=== PATIENT | male | born 1965 | race Caucasian/White ===

== ENCOUNTER 2017-04-19 13:29 | Emergency (ER) | payer OTHER ==
[2017-04-19] MEDS ORDERED: SODIUM CHLORIDE 0.9% FLUSH 10 ML SOL IV PRN (13:31)
[2017-04-19] MEDS ORDERED: NITROGLYCERIN 0.4 MG TAB SL ONE (13:48)
[2017-04-19] MEDS: NITROGLYCERIN 0.4 MG TAB SL PRN ×2 (13:51→13:59)
[2017-04-19 13:53] LABS: BASOPHILS % (AUTO) 1 % (0-3); EOSINOPHILS % (AUTO) 6 % (0-9); HEMATOCRIT 50 % (39-53); MEAN CORPUSCULAR HGB CONC 32.3 gm/dl (32.0-36.0); MEAN CORPUSCULAR VOLUME 86 fL (80-100)
[2017-04-19 14:07] LABS: ALBUMIN 3.7 gm/dl (3.4-5.0); CALCIUM 8.9 mg/dl (8.5-10.1)
[2017-04-19] MEDS ORDERED: HEPARIN SODIUM 5000 U/ML SOL IV ONE (14:16)
[2017-04-19] MEDS ORDERED: HEPARIN PREMIX 25,000 U/250 ML SOL IV PRN (14:18)
[2017-04-19] MEDS ORDERED: HEPARIN SODIUM 5000 U/ML SOL ONE (14:22)
[2017-04-19 14:26] LABS: APPEARANCE,URINE Clear; BILIRUBIN,URINE NEGATIVE (NEGATIVE); COLOR,URINE Yellow; GLUCOSE, URINE (UA) NEGATIVE (NEGATIVE); KETONES,URINE NEGATIVE (NEGATIVE); LEUKOCYTE ESTERASE ,URINE NEGATIVE (NEGATIVE); NITRATE,URINE NEGATIVE (NEGATIVE); OCCULT BLOOD,URINE NEGATIVE (NEG-TRACE); PH,URINE 5.5; UROBILINOGEN,URINE 0.2 (0.2-1.0 EU)
[2017-04-19 14:45] LABS: AMPHETAMINES NEGATIVE (NEGATIVE); METHADONE NEGATIVE (NEGATIVE); OPIATES(OP13) NEGATIVE (NEGATIVE); OXYCODONE(OXY) NEGATIVE (NEGATIVE); PROPOXYPHENE(PPX) NEGATIVE (NEGATIVE); RBC,URINE NEGATIVE (0-3AV/HPF); TRICYCLIC ANTIDEPRESSANTS NEGATIVE (NEGATIVE); WBC,URINE 0-1 (0-5AV/HPF)
[2017-04-19 14:53] VITALS: TEMP 99.4
[2017-04-19 15:37] VITALS: BP 148/60; PULSE 57; RESP 17; O2SAT 98
== END 2017-04-19 15:40 | disposition short-term general hospital (02) ==
LOC: ED 13:29
DX: I21.4 Non-ST elevation (NSTEMI) myocardial infarction (principal); I16.1 Hypertensive emergency; D72.829 Elevated white blood cell count, unspecified; Z72.0 Tobacco use; R29.700 NIHSS score 0; J02.9 Acute pharyngitis, unspecified; R06.02 Shortness of breath; R79.89 Other specified abnormal findings of blood chemistry; R42 Dizziness and giddiness
CPT/HCPCS: 71045; 80053; 80305; 81001; 84484; 85025; 85610; 85730; 87040; 93005; 99285; J1644

== ENCOUNTER 2018-04-09 12:20 | Day surgery (SDC) | payer BC | END 2018-04-09 13:29 | disposition home or self-care (01) | LOC: SURG 12:20 ==

== ENCOUNTER 2018-09-10 17:26 | Emergency (ER) | payer OTHER ==
[2018-09-10] MEDS ORDERED: ASPIRIN 81 MG CHEWABLE CTB PO ONE (17:43)
[2018-09-10] MEDS ORDERED: ASPIRIN 81 MG CHEWABLE CTB ONE (17:44)
[2018-09-10 17:45] VITALS: TEMP 98.4
[2018-09-10 18:02] LABS: BASOPHILS % (AUTO) 1 % (0-3); EOSINOPHILS % (AUTO) 3 % (0-9); HEMATOCRIT 47 % (39-53); HEMOGLOBIN 15.4 gm/dl (13.5-17.7); MEAN CORPUSCULAR HEMOGLOBIN 27.9 pg (27.0-32.0); MEAN CORPUSCULAR HGB CONC 32.5 gm/dl (32.0-36.0); MEAN CORPUSCULAR VOLUME 86 fL (80-100); MONOCYTES % (AUTO) 6.8 % (0-12); NEUTROPHILS % (AUTO) 53.8 % (37-80)
[2018-09-10 18:10] LABS: ALBUMIN 3.7 gm/dl (3.4-5.0); ALKALINE PHOSPHATASE 101 IU/L (46-116); ALT 22 IU/L (14-63); AST 15 IU/L (15-37); BILIRUBIN,TOTAL 0.2 mg/dl (0.2-1.0); BLOOD UREA NITROGEN 15 mg/dl (7-18); CALCIUM 8.8 mg/dl (8.5-10.1); CARBON DIOXIDE 27.5 mEq/L (21-32); CHLORIDE 104 mMol/L (98-107); CREATININE 0.82 mg/dl (0.80-1.30); CRP INFLAMMATORY 0.53 mg/dl (0.00-0.33); GLUCOSE 108 mg/dl (74-106); SODIUM 139 mMol/L (136-145); TOTAL PROTEIN 7.2 gm/dl (6.4-8.2); TROP I < 0.017 ng/ml (0.000-0.056)
[2018-09-10 20:07] VITALS: BP 129/89; PULSE 61; RESP 22; O2SAT 94
== END 2018-09-10 19:07 | disposition left against medical advice (07) ==
LOC: ED 17:26
DX: R07.9 Chest pain, unspecified (principal); R05 Cough; R06.02 Shortness of breath
CPT/HCPCS: 71046; 80053; 83880; 84484; 85025; 93005; 99283; 99285